=== PATIENT | female | born 1985 | race Caucasian/White ===

== ENCOUNTER → 2019-12-27 | Outpatient (CLI) | payer OTHER | LOC: LAB 13:49 | PROVIDERS: ATTEND Internal Medicine Gastroenterology | DX: Z01.812 Encounter for preprocedural laboratory examination (principal); Z20.828 Contact with and (suspected) exposure to other viral communicable diseases | CPT/HCPCS: U0003 ==

== ENCOUNTER → 2019-12-30 | Day surgery (SDC) | payer OTHER ==
[~2019-12-30] MED LIST: IV RINGERS,LACTATED 1000ML 1,000 ML IV SCH; LIDOCAINE 2% PF 5 ML VIAL. ONE; PROPOFOL 10 MG/ML (20ML) VIAL. IV ONE
--- NOTE | 2019-12-30 12:53 | PDOC1 ---
History and Physical Date of Admission Date of Admission DATE: 12/30/19 TIME: 12:45 Identification/Chief Complaint Chief Complaint EGD priir to [facility] surgery. Source Source: Chart review, Patient History of Present Illness History of Present Illness 34 y/o female considering bariatric procedure. Surgeon requests pre-op EGD. Patient denies HB, dysphagia, PUD, GB, liver or pancreatic history. No tobacco. Occasional alcohol. No D, C, overt bleeding. Long h/o anemia attributed to heavy menses. Seeing paste thinner at . No prior endoscopy. No GIFH. Past Medical History Pulmonary: Asthma, Other (SILAS) Endocrine: Other ([facility].) Past Surgical History Past Surgical History: Family History Family History: Diabetes Social History Smoke: No ALCOHOL: occassional Drugs: None Current Medications Current Medications Current Medications Ringer's Solution 1,000 ml @ 50 mls/hr Q20H IV Last administered on 12/30/19at 12:40; Start 12/30/19 at 13:00; Stop 12/30/19 at 21:00 Active Scripts Active Reported No Known Medications Prior To Admisstion (Info) Each 1 Each DAILY Allergies Allergies: Coded Allergies: amoxicillin (Verified Allergy, Intermediate, Rash, 12/30/19) erythromycin base (Verified Allergy, Intermediate, Unknown, 12/30/19) ROS Review of System Otherwise negative. Physical Exam General: Alert, Oriented X3, Cooperative, No acute distress Lungs: Clear to auscultation Heart: S1S2, RRR, no gallops, no murmurs Abdomen: Normal bowel sounds, Soft, No tenderness, No hepatosplenomegaly, No masses Rectal Exam: not examined Extremities: No clubbing, No cyanosis, No edema Skin: No significant lesion Neuro: Normal speech, Strength at 5/5 X4 ext, Normal tone, Sensation intact, Cranial nerves 3-12 NL, Reflexes 2+ Psych/Mental Status: Mental status NL, Mood NL Vitals Vitals Vital Signs Date Time Temp Pulse Resp B/P (MAP) Pulse Ox O2 Delivery O2 Flow Rate FiO2 12/30/19 12:31 97 70 18 99 97.0 Labs Labs Laboratory Tests Test 12/30/19 12:26 Bedside Urine HCG, Qualitative Hcg negative (Negative) Laboratory Tests Test 12/30/19 12:26 Bedside Urine HCG, Qualitative Hcg negative (Negative) VTE Prophylaxis Ordered VTE Prophylaxis Devices: No VTE Pharmacological Prophylaxi: No Assessment/Plan Assessment/Plan IMP: Considering bariatric procedure; r/o H.pylori. PLAN: EGD with biopsies. RIMA ARZOLA MD Dec 30, 2019 12:53
--- NOTE | 2019-12-30 13:08 | PDOC4 ---
PROCEDURE Procedure EGD/biopsies Indication: Prior to bariatric surgery; r/o H.pylori/anemia Meds: per anesthesia Findings: E--Normal, GEJ at 43cm. G--normal, biopsies antrum to r/o H.p. D--Normal, biopsies second portion. Payton. well IMP: Normal exam. REC:Await biopsies. RIMA ARZOLA MD Dec 30, 2019 13:08
[2019-12-30 13:25] VITALS: BP 102/54
--- NOTE | 2020-01-02 15:08 | PATHOLOGY ---
[facility] Accession Number: [id number] . 01 Material submitted: . PART A: duodenum - DUODENAL BIOPSY PART B: stomach - ANTRAL BIOPSY . 02 Diagnosis: A. Duodenal biopsies: - No significant pathologic abnormalities. . B. Gastric biopsies, antrum: - Chronic gastritis, mild. LBQ 01/02/2020 1117 Local . 02 Comment: Sections of the duodenal biopsy reveal segments of small intestine mucosa. Where best oriented, the mucosal villi show no sprue-like changes or significant inflammatory changes. . Sections of the gastric biopsy reveal segments of gastric body mucosa showing superficial congestion and mild chronic inflammation. A properly controlled immunoperoxidase stain for Helicobacter is negative for Helicobacter organisms. There is no evidence of malignancy. (JPM/db; 01/02/2020) . Special stain performed: Immunoperoxidase stain for Helicobacter on B1 . 02 Electronically signed: . Dionisio Ramirez MD, Pathologist NPI- [id number] . 01 Gross description: . A. The specimen is received in formalin, labeled "She Martinez, duodenum biopsy". Received are three segments of pale conklin soft tissue ranging in size from 0.2 to 0.7 cm in maximum dimensions. The specimen is submitted entirely in cassette A1. . B. The specimen is received in formalin, labeled "She Martinez, antrum biopsy". Received are four segments of pale conklin soft tissue ranging in size from 0.1 to 0.5 cm in maximum dimensions. The specimen is submitted entirely in cassette B1. (CAA; 01/01/2020) QAC/QAC 01/01/2020 1330 Local . 02 Pathologist provided ICD-10: K29.50 . 02 CPT . 107558, 891171, [id number] Specimen Comment: A courtesy copy of this report has been sent to [phone], [phone] Specimen Comment: [id number] Specimen Comment: Report sent to / DR PATEL Performed at: [address] [id number] MD Vlad Starr MD Phone: [phone] [facility]: [facility] [address] [place], [place] [id number] MD Dionisio Ramirez MD Phone: [phone]
== END | disposition home or self-care (01) ==
LOC: ENDOS 12:01 → EDUNIT# 13:00
PROVIDERS: ATTEND Internal Medicine Gastroenterology
DX: E66.01 Morbid (severe) obesity due to excess calories (principal); K21.9 Gastro-esophageal reflux disease without esophagitis; K31.89 Other diseases of stomach and duodenum; Z98.84 Bariatric surgery status; Z79.899 Other long term (current) drug therapy; Z98.890 Other specified postprocedural states; Z88.1 Allergy status to other antibiotic agents
CPT/HCPCS: 43239; 81025; J2704